=== PATIENT | female | born 1990 | race Two or more races ===

== ENCOUNTER 2018-09-20 23:06 | Emergency (ER) | payer OTHER ==
[~2018-09-20] VITALS: Ht 154.9 cm; Wt 77.1 kg
[2018-09-20] MEDS ORDERED: [UNRECOGNIZED DRUG - OTHER] (23:32)
[2018-09-20] MEDS ORDERED: PAXIL20 MG (23:33)
== END 2018-09-21 04:20 | disposition home or self-care (01) ==
LOC: ER 23:06
DX: O20.0 Threatened abortion (principal)